=== PATIENT | female | born 1990 | race African-American/Black ===

== ENCOUNTER 2016-04-09 13:20 | Emergency (ER) | payer OTHER ==
[~2016-04-09] VITALS: Ht 167.6 cm; Wt 50.8 kg
[~2016-04-09 13:20] MED LIST: ACETAMINOPHEN-1 EAC1 PO; ACYCLOVIR 800800 M1 PO; AMOXICILLIN 50500 M1 PO; APAP500 PO; CAVAN-FOLATE D1 EACH PO; COLACE 100 MG100 MG PO; DERMOPLAST SPRA56 ML; FLAGYL500 MG PO; FLONASE 0.05%50 MCG NASAL; FOLIC ACID 40400 MC1; FOLIC ACID1 MG PO; IBUPROFEN 600600 M1 PO; IBUPROFEN 800800 M1 PO; IRON159 MG; IRON325 PO; IROSPAN 24/6 T1 EACH PO; KEFLEX500 MG PO; LANOLIN56 GM; LORATADINE-D 21 EAC1 PO; MACROBID 100 M100 M1 PO; NAPROSYN500 MG PO; NOHOMEMEDICATIONS; NORCO 5-325 TA1 EACH PO; PRENATAL; PRENATAL PO; PROCARDIA XL30 MG PO; PROMETRIUM100 MG; TESSALON PERLE100 MG PO; ZOFRAN ODT4 MG PO; ZOFRAN4 MG PO; ZPAK PO
[2016-04-09] MEDS ORDERED: PROAIR HFA8.5 GM INH (14:25)
[2016-04-09] MEDS ORDERED: AZITHROMYCIN 2250 MG PO (14:26)
[2016-04-09] MEDS ORDERED: PROMETHAZINE D480 ML PO (14:26)
[2016-04-09] MEDS ORDERED: NORCO 5-325 TA1 EACH PO (14:26)
[2016-04-09] MEDS ORDERED: IBUPROFEN 600600 M1 PO (14:26)
[2016-04-09 15:01] VITALS: BP 107/68
[2016-05-14] MEDS ORDERED: KEFLEX500 MG PO (13:07)
== END 2016-04-09 15:01 | disposition home or self-care (01) ==
LOC: ER 13:20
DX: J40 Bronchitis, not specified as acute or chronic (principal)

== ENCOUNTER → 2016-04-09 13:48 | Emergency (ER) | payer OTHER ==
[~2016-04-09 13:48] MED LIST changes: +AZITHROMYCIN 2250 MG PO; +PROAIR HFA8.5 GM INH; +PROMETHAZINE D480 ML PO
== END ==
LOC: ER 13:48
DX: Z53.21 Procedure and treatment not carried out due to patient leaving prior to being seen by health care provider (principal)

== ENCOUNTER 2016-07-05 09:55 | Emergency (ER) | payer OTHER ==
[~2016-07-05] VITALS: Ht 165.1 cm; Wt 50.8 kg
[2016-07-05 09:58] VITALS: BP 116/72
[2016-07-05] MEDS ORDERED: CLEOCIN HCL300 MG PO (10:07)
[2016-07-05] MEDS ORDERED: ULTRAM 50MG TAB50 MG PO (10:08)
[2016-07-05] MEDS ORDERED: IBUPROFEN 600600 M1 PO (10:08)
== END 2016-07-05 10:29 | disposition home or self-care (01) ==
LOC: ER 09:55
DX: L02.414 Cutaneous abscess of left upper limb (principal); S51.852A Open bite of left forearm, initial encounter; W57.XXXA Bitten or stung by nonvenomous insect and other nonvenomous arthropods, initial encounter; Y93.89 Activity, other specified; Y92.89 Other specified places as the place of occurrence of the external cause; Y99.8 Other external cause status

== ENCOUNTER 2016-09-24 15:18 | Emergency (ER) | payer OTHER ==
[~2016-09-24] VITALS: Ht 165.1 cm; Wt 50.8 kg
[~2016-09-24 15:18] MED LIST changes: +CLEOCIN HCL300 MG PO; +ULTRAM 50MG TAB50 MG PO
[2016-09-24 15:54] LABS: URINE BILIRUBIN NEGATIVE (Negative); URINE BLOOD NEGATIVE (Negative); URINE COLOR YELLOW; URINE GLUCOSE-RANDOM* NEGATIVE (Negative); URINE KETONES NEGATIVE (Negative); URINE LEUKOCYTES-REFLEX 3+ (Negative); URINE PROTEIN (DIPSTICK) TRACE (Negative); URINE SPECIFIC GRAVITY 1.015 (1.003-1.035)
[2016-09-24 16:01] LABS: CASTS None Seen /LPF (None Seen); CRYSTALS None Seen /LPF (None Seen); SQUAMOUS 4-10 Moderate /LPF (0-3); URINE RBC None Seen /HPF (0-2)
[2016-09-24] MEDS ORDERED: KEFLEX500 MG PO (16:34)
[2016-09-24 19:00] VITALS: BP 122/73
[2016-09-25 20:10] LABS: CHLAMYDIA TRACHOMATIS-PCR Negative (Negative); NEISSERIA GONORRHEA-PCR Negative (Negative)
== END 2016-09-24 16:39 | disposition home or self-care (01) ==
LOC: ER 15:18
PROVIDERS: Emergency Medicine
DX: O20.0 Threatened abortion (principal); O23.41 Unspecified infection of urinary tract in pregnancy, first trimester; Z3A.01 Less than 8 weeks gestation of pregnancy

== ENCOUNTER 2017-04-25 10:10 | Emergency (ER) | payer BC, OTHER ==
[~2017-04-25] VITALS: Ht 167.6 cm; Wt 46.7 kg
[2017-04-25] MEDS ORDERED: PROMETHAZINE/C118 ML PO (12:00)
[2017-04-25] MEDS ORDERED: PREDNISONE 20 M20 MG PO (12:00)
== END 2017-04-25 12:11 | disposition home or self-care (01) ==
LOC: ER 10:10
DX: J20.8 Acute bronchitis due to other specified organisms (principal)

== ENCOUNTER 2017-12-02 07:59 | Emergency (ER) | payer OTHER ==
[~2017-12-02] VITALS: Ht 167.6 cm; Wt 54.4 kg
[~2017-12-02 07:59] MED LIST changes: +PREDNISONE 20 M20 MG PO; +PROMETHAZINE/C118 ML PO
[2017-12-02 08:09] VITALS: BP 131/78
[2017-12-02] MEDS ORDERED: TESSALON PERLE100 MG PO (08:23)
[2017-12-02] MEDS ORDERED: MUCINEX1200 MG PO (08:23)
== END 2017-12-02 08:45 | disposition home or self-care (01) ==
LOC: ER 07:59
DX: J06.9 Acute upper respiratory infection, unspecified (principal); M79.1 Myalgia

== ENCOUNTER 2018-02-07 16:24 | Emergency (ER) | payer BC, OTHER ==
[~2018-02-07] VITALS: Ht 165.1 cm; Wt 47.6 kg
[~2018-02-07 16:24] MED LIST changes: +MUCINEX1200 MG PO
== END 2018-02-07 18:15 | disposition home or self-care (01) ==
LOC: ER 16:24
DX: Z20.2 Contact with and (suspected) exposure to infections with a predominantly sexual mode of transmission (principal); Z32.02 Encounter for pregnancy test, result negative

== ENCOUNTER 2018-02-12 12:52 | Emergency (ER) | payer BC, OTHER ==
[~2018-02-12] VITALS: Ht 165.1 cm; Wt 47.6 kg
[2018-02-12] MEDS ORDERED: MUPIROCIN22 GM TOP (13:20)
== END 2018-02-12 13:42 | disposition home or self-care (01) ==
LOC: ER 12:52
DX: S80.211A Abrasion, right knee, initial encounter (principal); W18.39XA Other fall on same level, initial encounter; Y92.481 Parking lot as the place of occurrence of the external cause; Y93.89 Activity, other specified; Y99.8 Other external cause status

== ENCOUNTER 2018-03-02 16:00 | Emergency (ER) | payer BC, OTHER ==
[~2018-03-02] VITALS: Ht 165.1 cm; Wt 48.1 kg
[~2018-03-02 16:00] MED LIST changes: +MUPIROCIN22 GM TOP
[2018-03-02 16:02] VITALS: BP 125/82
[2018-03-02] MEDS ORDERED: NAPROSYN500 MG PO (16:51)
== END 2018-03-02 17:13 | disposition home or self-care (01) ==
LOC: ER 16:00
DX: S63.501A Unspecified sprain of right wrist, initial encounter (principal); S40.011A Contusion of right shoulder, initial encounter; W00.0XXA Fall on same level due to ice and snow, initial encounter; Y93.89 Activity, other specified; Y92.89 Other specified places as the place of occurrence of the external cause; Y99.8 Other external cause status

== ENCOUNTER 2018-07-17 08:33 | Emergency (ER) | payer OTHER ==
[~2018-07-17] VITALS: Ht 165.1 cm; Wt 56.7 kg
[2018-07-17 10:14] VITALS: BP 116/71
== END 2018-07-17 10:15 | disposition home or self-care (01) ==
LOC: ER 08:33
DX: J02.9 Acute pharyngitis, unspecified (principal); J06.9 Acute upper respiratory infection, unspecified; R05 Cough

== ENCOUNTER 2019-03-12 09:02 | Emergency (ER) | payer OTHER ==
[~2019-03-12] VITALS: Ht 167.6 cm; Wt 50.8 kg
[2019-03-12 09:37] LABS: URINE BILIRUBIN NEGATIVE (Negative); URINE BLOOD 3+ (Negative); URINE CLARITY CLEAR; URINE COLOR YELLOW; URINE GLUCOSE-RANDOM* NEGATIVE (Negative); URINE KETONES NEGATIVE (Negative); URINE LEUKOCYTES-REFLEX NEGATIVE (Negative); URINE NITRITE-REFLEX NEGATIVE (Negative); URINE PROTEIN (DIPSTICK) NEGATIVE (Negative); URINE SPECIFIC GRAVITY 1.015 (1.005-1.035); URINE UROBILINOGEN 0.2 E.U./dl (0.2-1.0)
[2019-03-12 09:59] LABS: CASTS None Seen /LPF (None Seen); CRYSTALS None Seen /LPF (None Seen); SQUAMOUS >10 Many /LPF (0-3); URINE WBC-REFLEX 0-5 Rare /HPF (0-5)
[2019-03-12 10:01] LABS: BACTERIA-REFLEX 1-9 Few /HPF (None Seen); URINE RBC 0-2 Rare /HPF (0-2)
[2019-03-12 10:47] LABS: ABSOLUTE NEUTROPHILS 10.7 thou/uL (1.4-8.2); BASOPHILS 0.1 % (0.0-2.0); EOSINOPHILS 0.1 % (0.0-3.0); HEMATOCRIT 36.3 % (37.0-47.0); HEMOGLOBIN 11.9 gm/dL (12.0-15.0); LYMPHOCYTES 1.7 % (24.0-44.0); MCH 28.8 pg (26.0-34.0); MCHC 32.7 g/dL (28.0-37.0); MCV 88.1 fL (80.0-100.0); MONOCYTES 2.8 % (1.0-8.0); PLATELET COUNT 277 thou/uL (150-400); POLYS 95.3 % (36.0-66.0); RBC 4.13 mil/uL (4.20-5.00); RDW 12.6 % (10.5-14.5); WBC 11.2 thou/uL (4.0-11.0)
[2019-03-12 10:49] LABS: CALCIUM 9.2 mg/dL (8.5-10.1); CREATININE 0.9 mg/dL (0.6-1.0); POTASSIUM 3.9 mmol/L (3.5-5.1)
[2019-03-12 10:51] LABS: MAGNESIUM 1.6 mg/dL (1.8-2.4)
[2019-03-12] MEDS ORDERED: ONDANSETRON ODT4 MG PO (12:15)
[2019-03-12 13:03] VITALS: BP 104/63
== END 2019-03-12 13:05 | disposition home or self-care (01) ==
LOC: ER 09:02
PROVIDERS: Emergency Medicine
DX: R11.2 Nausea with vomiting, unspecified (principal); R10.9 Unspecified abdominal pain

== ENCOUNTER 2019-09-22 18:47 | Emergency (ER) | payer OTHER ==
[~2019-09-22] VITALS: Ht 165.1 cm; Wt 55.8 kg
[~2019-09-22 18:47] MED LIST changes: +KEFLEX500 M1 PO; +ONDANSETRON ODT4 MG PO
[2019-09-22 18:59] VITALS: BP 119/73
[2019-09-22] MEDS ORDERED: MIRALAX119 GM PO (19:20)
[2019-09-22] MEDS ORDERED: PREPARATION H26 GM TOP (19:20)
== END 2019-09-22 19:34 | disposition home or self-care (01) ==
LOC: ER 18:47
DX: K64.4 Residual hemorrhoidal skin tags (principal); Z79.2 Long term (current) use of antibiotics